=== PATIENT | male | born 1945 | race Caucasian/White ===

== ENCOUNTER → 2021-12-01 11:07 | Outpatient (CLI) | payer MEDICARE, SELFPAY ==
[2021-12-01 19:06] LABS: Alanine Aminotransferase 21 IU/L (<50); Albumin 4.6 g/dL (3.5-5.0); Albumin Globulin Ratio 1.9 (1.0-2.8); Alkaline Phosphatase 69 U/L (38-126); Aspartate Aminotransferase 36 IU/L (17-59); Bilirubin Total 0.8 mg/dL (0.2-1.3); Bilirubin Unconjugated 0.6 mg/dL (0.0-1.1); Globulin 2.4 g/dL (1.7-4.1); HEMOLYSIS < 15 (0-50)
== END ==
PROVIDERS: PCP Family Medicine; Visit Provider Family Medicine
DX: R79.89 Other specified abnormal findings of blood chemistry (principal)
CPT/HCPCS: 80076

== ENCOUNTER → 2022-12-28 11:36 | Outpatient (CLI) | payer MEDICARE, SELFPAY ==
[2022-12-28 20:25] LABS: Add Manual Diff / Slide Review YES; Hematocrit 40.4 % (41-53); Mean Corpuscular HGB Conc 34.8 % (30-36); Mean Corpuscular Hemoglobin 31.9 PG (26-34); Mean Corpuscular Volume 91.8 fL (80-100); Platelet Count 168 X10^3/uL (150-400); Red Cell Distribution Width 15.5 % (11.6-14.8); White Blood Cell Count 7.6 X10^3/uL (4.5-11.0)
[2022-12-28 20:50] LABS: Neutrophils Absolute Manual 4940 /uL (3000-5900); Total Cells Counted 100
[2022-12-28 20:52] LABS: RBC Morphology Normal Morphology
[2022-12-28 20:54] LABS: Alanine Aminotransferase 23 IU/L (<50); Albumin 4.5 g/dL (3.5-5.0); Albumin Globulin Ratio 1.7 (1.0-2.8); Alkaline Phosphatase 92 U/L (38-126); Aspartate Aminotransferase 35 IU/L (17-59); BUN Creatinine Ratio 18.5 (6-22); Bilirubin Total 0.6 mg/dL (0.2-1.3); Blood Urea Nitrogen 17 mg/dL (9-20); Calcium 9.1 mg/dL (8.4-10.2); Carbon Dioxide 30 mmol/L (22-32); Chloride 103 mmol/L (98-107); Cholesterol 125 mg/dL (140-199); Estimated Glomerular Filt Rate > 60 mL/min (>60); Globulin 2.7 g/dL (1.7-4.1); Glucose 109 mg/dL (80-110); HDL Cholesterol 38 mg/dL (40-60); HEMOLYSIS < 15 (0-50); LDL Cholesterol Calculated 55 mg/dL (<100); Potassium 3.8 mmol/L (3.4-5.1); Sodium 141 mmol/L (137-145); Total Protein 7.2 g/dL (6.3-8.2); Triglycerides 158 mg/dL (35-150)
[2022-12-28 21:05] LABS: Troponin I < 0.012 ng/mL (0.01-0.034)
[2022-12-28 21:24] LABS: Prostate Specific Antigen 0.327 ng/mL (0.10-4.00)
== END ==
PROVIDERS: PCP Family Medicine; Visit Provider Family Medicine
DX: F32.4 Major depressive disorder, single episode, in partial remission (principal); N40.0 Benign prostatic hyperplasia without lower urinary tract symptoms; E78.2 Mixed hyperlipidemia; I25.10 Atherosclerotic heart disease of native coronary artery without angina pectoris; R06.09 Other forms of dyspnea; Z95.5 Presence of coronary angioplasty implant and graft; R97.20 Elevated prostate specific antigen [PSA]
CPT/HCPCS: 80053; 80061; 84153; 84443; 84484; 85007; 85025

== ENCOUNTER → 2023-01-10 07:48 | Outpatient (CLI) | payer MEDICARE, SELFPAY ==
--- NOTE | 2023-01-10 07:49 | DI.ECHO.S_ITS ---
[place] [facility]---------+ [facility] +---------+ : : [address] : : : : [id number] : : : : Phone: [phone]+ Echocardiogram Report + + :Name: RAJINDER SKINNER Study Date: 01/10/2023 Height: 70 in : :[facility] ReadingLocation: Weight: 195 lb : : Gender: Male BSA: 2.1 m2 : :: 1945 Age: 77 yrs BP: 119/64 mmHg: :Reason For Study: DYSPNEA ON EXERTION, CAD : :Ordering Physician: GUIDO, : :VINAYAK Performed By: Shantal Walters : :Referring: VINAYAK LORA : + + Interpretation Summary The ejection fraction is estimated to be 60-65%. Diastolic parameters suggest probable normal left ventricular diastolic function and normal filling pressures. The right ventricle is normal in size and function. There is trace aortic regurgitation. Pulmonary artery pressures cannot be estimated because of the lack of a measurable TR jet velocity. Procedure: A two-dimensional transthoracic echocardiogram with color flow and Doppler was performed. The study quality was technically adequate. There is no prior echocardiogram noted for this patient. The patient was in sinus bradycardia with heart rates between 52-54 bpm during the exam. Left Ventricle: The left ventricle is normal in size and wall thickness. The ejection fraction is estimated to be 60-65%. Diastolic parameters suggest probable normal left ventricular diastolic function and normal filling pressures. Right Ventricle: The right ventricle is normal in size and function. Atria: The left atrial size is normal. Right atrial size is normal. There is no Doppler evidence for an interatrial shunt. Mitral Valve: The mitral valve is normal in structure and function. There is no mitral regurgitation noted. Aortic Valve: The aortic valve is trileaflet. The aortic valve opens well. There is no aortic valve stenosis. There is trace aortic regurgitation. Tricuspid Valve: The tricuspid valve is normal in structure and function. There is trace tricuspid regurgitation. Pulmonary artery pressures cannot be estimated because of the lack of a measurable TR jet velocity. Pulmonic Valve: The pulmonic valve is not well seen, but is grossly normal. There is no pulmonic valvular regurgitation. Great Vessels: The aortic root is normal size. The dimensions of the ascending aorta are normal. The IVC is of normal diameter and collapses greater than 50% with a sniff. This suggests a low right atrial pressure of 3 mm Hg. Pericardium/ Pleura There is no pericardial effusion. There is no pleural effusion. MMode/2D Measurements & Calculations LVIDd: 4.2 cm LVOT diam: 2.1 cm LVIDs: 2.8 cm Ao root diam: 3.4 cm FS: 32.3 % asc Aorta Diam: 3.7 cm EPSS: 0.76 cm Ao Arch Diam (Prox Trans): 3.2 cm IVSd: 0.94 cm LVPWd: 0.95 cm LV maxwell. diameter/BSA (cm/m^2): 2.0 LV sys. diameter/BSA (cm/m^2): 1.4 LA A2 area: 17.2 cm2 RA long axis: 5.5 cm LA A4 area: 14.0 cm2 RA area: 14.1 cm2 LA length (vol): 4.8 cm RA vol: 31.1 ml LA vol: 41.9 ml RA : 15.0 ml/m2 LA vol index: 20.3 ml/m2 IVC diam: 1.3 cm RVD1 (basal): 3.4 cm RVD2 (mid): 2.8 cm TAPSE: 2.0 cm Doppler Measurements & Calculations Ao V2 max: 133.6 cm/sec LVOT Max Osmany: 94.7 cm/sec Ao V2 mean: 91.7 cm/sec LV V1 max P.6 mmHg Ao max P.1 mmHg LV V1 VTI: 23.5 cm Ao mean P.7 mmHg CORETTA(I,D): 2.7 cm2 Ao V2 VTI: 30.0 cm CORETTA(V,D): 2.4 cm2 sev ratio: 0.78 CORETTA indexed to BSA (cm^2/m^2): 1.3 MV E max osmany: 90.4 cm/sec TR max osmany: 254.0 cm/sec MV A max osmany: 88.6 cm/sec TR max P.8 mmHg MV E/A: 1.0 PA V2 max: 116.6 cm/sec Med Peak E' Osmany: 5.9 cm/sec PA V2 mean: 81.1 cm/sec E/E' med: 15.4 PA mean P.9 mmHg Lat Peak E' Osmany: 7.6 cm/sec PA pr(Accel): 27.6 mmHg E/E' lat: 11.8 E/e' average: 13.6 MV dec time: 0.25 sec SVLVOT): 80.2 ml Reading Physician:10:04 AM
--- NOTE | 2023-01-11 20:55 | DI.NM.S_ITS ---
DATE OF SERVICE: 01/10/2023 PROCEDURE PERFORMED: Pharmacologic vasodilator stress and rest myocardial perfusion imaging with gating to assess ejection fraction and regional wall motion. ORDERING PROVIDER: Johnson Garcia MD. INDICATIONS: The patient is a 77-year-old male with known pulmonary fibrosis and coronary artery disease status post LAD stenting in September who presents with progressive exertional dyspnea and chest pressure. CARDIAC STRESS: Per protocol, 0.4 mg of regadenoson was infused with a normal hemodynamic response. With this, he had minimal dyspnea and described mild substernal chest discomfort. His resting ECG shows sinus rhythm with normal ST segments and there are no significant ST-segment shifts or arrhythmias with pharmacologic stress. Per protocol, he was injected with 26.2 millicuries of technetium-99m Myoview and was imaged 10 minutes later using a gated SPECT acquisition protocol. The day prior while at rest, he was injected with 25.4 millicuries of technetium-99m Myoview and was imaged 20 minutes later, again using a gated SPECT acquisition protocol. FINDINGS: 1. Raw data. There is fairly good myocardial tracer uptake. The lung/heart ratio is at the upper limits of normal at 0.41, which can be a sign of pulmonary congestion but is nonspecific. The TID ratio is normal at 1.15. 2. Quantitated gated SPECT: Post-stress ejection fraction is estimated at 75% without any focal wall motion abnormality and specifically the anterior wall has normal contractility. The resting ejection fraction is 76% with a normal resting end-diastolic volume of 80 mL. 3. Myocardial perfusion imaging: Post-stress supine images show a fairly normal myocardial perfusion pattern with only a very small, subtle defect in the proximal to mid septum that improves but does not completely resolve on the prone images, yet appears to be shifted more anteriorly. There are no other perfusion defects. The resting images show a similar perfusion pattern although with improvement in the small focal septal defect. IMPRESSION: 1. Probable abnormal but low risk myocardial perfusion study. 2. Small, subtle, focal reversible perfusion defect in the proximal to mid septum that could represent a small volume of ischemia, possibly from a trapped septal branch, but could also simply reflect attenuation artifact. There is no evidence for significant myocardial ischemia or previous myocardial infarction. 3. Normal left ventricular systolic function without any focal wall motion abnormality. A borderline elevated lung/heart ratio could indicate pulmonary congestion but is nonspecific and requires clinical correlation. 4. Mild dyspnea and chest discomfort with pharmacologic vasodilator stress but without ST-segment shifts or arrhythmias to suggest ischemia. Levi Forbes - /agustin/ doc#: [id number]/job#: [id number] dd: 01/11/2023 16:30:00 dt: 01/11/2023 19:09:00 DICTATING MD/COPIES TO: Johnson Greene MD; Johnson Garcia MD COPIES MNE: LETA;
== END ==
PROVIDERS: PCP Family Medicine; Referring Provider Family Medicine; Visit Provider Family Medicine
DX: J84.112 Idiopathic pulmonary fibrosis (principal); R06.09 Other forms of dyspnea; Z95.5 Presence of coronary angioplasty implant and graft; I25.10 Atherosclerotic heart disease of native coronary artery without angina pectoris
CPT/HCPCS: 93306

== ENCOUNTER → 2023-01-10 09:08 | Outpatient (CLI) | payer MEDICARE, SELFPAY ==
--- NOTE | 2023-01-10 | DI.CT.S_ITS ---
PROCEDURE: CT CHEST HIGH RESOLUTION INDICATIONS: Interstitial pulmonary disease, unspecified TECHNIQUE: Noncontrast 1.0 and 5.0 mm thick contiguous axial sections from the pulmonary apex to the posterior costophrenic angles, with 7 mm thick coronal and sagittal MIP reformats. 1 mm thick dynamic expiratory images acquired through the upper, mid, and lower lungs. 1.0 mm thick axial sections acquired from the avani to the posterior costophrenic angles in the prone end-inspiration position. For radiation dose reduction, the following was used: automated exposure control, adjustment of mA and/or kV according to patient size. COMPARISON: Outside Facility, , CT THORAX W/O CONTRAST, 07/27/2021, 10:16. FINDINGS: Lungs: Bilateral subpleural reticular opacities redemonstrated with an apical-basal gradient. Honeycombing and traction bronchiectasis are present. These findings appear similar to the prior exam. There has been a decrease in ground-glass opacities since the prior study. No definite or substantial air trapping identified. Pleura: No pleural effusions or pneumothorax. Mediastinum: Multivessel coronary artery calcifications and/or stents. no pericardial effusion. Thoracic aorta and central pulmonary arteries are normal in size. Esophagus is normal in caliber. Bones and chest wall: Multilevel degenerative change of the visualized spine. Abdomen: Similar prominent size of the imaged spleen, nonspecific. 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 Degree of fibrosis appears similar to before. Interval decrease in ground-glass opacities. Dictated by: Zack Nj M.D. on 01/15/2023 at 12:30 Approved by: Zack Nj M.D. on 01/15/2023 at 12:50
== END ==
PROVIDERS: PCP Family Medicine; Referring Provider Internal Medicine Pulmonary Disease; Visit Provider Internal Medicine Pulmonary Disease
DX: J84.9 Interstitial pulmonary disease, unspecified (principal); J84.112 Idiopathic pulmonary fibrosis; R07.89 Other chest pain; R06.09 Other forms of dyspnea; I25.10 Atherosclerotic heart disease of native coronary artery without angina pectoris; Z95.5 Presence of coronary angioplasty implant and graft
CPT/HCPCS: 71250; 78452; 93017; 93306; A9502; J2785

== ENCOUNTER → 2024-01-10 08:20 | Outpatient (CLI) | payer MEDICARE, SELFPAY ==
[2024-01-10 18:58] LABS: Alanine Aminotransferase 29 IU/L (<50); Albumin 4.8 g/dL (3.5-5.0); Albumin Globulin Ratio 1.7 (1.0-2.8); Alkaline Phosphatase 99 U/L (38-126); Aspartate Aminotransferase 40 IU/L (17-59); BUN Creatinine Ratio 18.3 (6-22); Bilirubin Total 0.8 mg/dL (0.2-1.3); Bilirubin Unconjugated 0.3 mg/dL (0.0-1.1); Blood Urea Nitrogen 19 mg/dL (9-20); Calcium 9.7 mg/dL (8.4-10.2); Carbon Dioxide 28 mmol/L (22-32); Chloride 104 mmol/L (98-107); Estimated Glomerular Filt Rate > 60 mL/min (>60); Globulin 2.8 g/dL (1.7-4.1); Glucose 111 mg/dL (80-110); HEMOLYSIS < 15 (0-50); Potassium 4.2 mmol/L (3.4-5.1); Sodium 143 mmol/L (137-145); Total Protein 7.6 g/dL (6.3-8.2)
[2024-01-10 19:15] LABS: Add Manual Diff / Slide Review NO; Basophils Absolute Auto 100 /uL (0-100); Basophils Percent Auto 0.5 % (0-2); Eosinophils Absolute Auto 100 /uL (0-450); Eosinophils Percent Auto 0.7 % (2-4); Hematocrit 42.5 % (41-53); Lymphocytes Absolute Auto 3300 /uL (1100-4500); Lymphocytes Percent Auto 30.7 % (25-40); Mean Corpuscular HGB Conc 35.3 % (30-36); Mean Corpuscular Volume 93.5 fL (80-100); Monocytes Absolute Auto 500 /uL (0-900); Monocytes Percent Auto 4.5 % (3-14); Neutrophils Absolute Auto 6800 /uL (1500-7000); Neutrophils Percent Auto 63.6 % (50-75); Platelet Count 228 X10^3/uL (150-400); Red Blood Cell Count 4.54 X10^6/uL (4.5-5.9); Red Cell Distribution Width 15.6 % (11.6-14.8); White Blood Cell Count 10.7 X10^3/uL (4.5-11.0)
[2024-01-10 19:31] LABS: Thyroid Stimulating Hormone 2.25 uIU/mL (0.47-4.68)
[2024-01-10 19:50] LABS: Vitamin B12 349 pg/mL (239-931)
== END ==
PROVIDERS: PCP Family Medicine; Visit Provider Family Medicine
DX: R06.09 Other forms of dyspnea (principal); Z95.5 Presence of coronary angioplasty implant and graft; I25.118 Atherosclerotic heart disease of native coronary artery with other forms of angina pectoris; R79.89 Other specified abnormal findings of blood chemistry; J84.112 Idiopathic pulmonary fibrosis
CPT/HCPCS: 80048; 80076; 82607; 84443; 85025